=== PATIENT | male | born 1960 | race Caucasian/White ===

== ENCOUNTER 2020-02-03 05:36 | Outpatient (RCR) | payer BC ==
[~2020-02-03] VITALS: Ht 170 cm; Wt 79.5 kg
[2020-02-03] MEDS ORDERED: LISI10TA2 PO (13:04)
== END 2020-02-03 13:20 | disposition home or self-care (01) ==
LOC: PREOP 05:36
PROVIDERS: ATTEND Urology
DX: Z01.818 Encounter for other preprocedural examination (principal)

== ENCOUNTER → 2020-02-05 | Outpatient (CLI) | payer BC ==
[~2020-02-05] MED LIST: LISI10TA2 PO; PHEN-640 PO; SULF1TAB35 PO; TMSL.4C PO
== END ==
LOC: LAB FS 10:36
PROVIDERS: ATTEND Urology
DX: Z20.828 Contact with and (suspected) exposure to other viral communicable diseases (principal)
CPT/HCPCS: 87635

== ENCOUNTER 2020-02-10 07:03 | Day surgery (SDC) | payer BC ==
[2020-02-10] VITALS (11 sets, daily range): BP systolic 99–133; BP diastolic 67–88
[~2020-02-10] VITALS: Ht 170 cm; Wt 79.5 kg
[~2020-02-10 07:03] MED LIST changes: -PHEN-640 PO; -SULF1TAB35 PO; -TMSL.4C PO
--- NOTE | 2020-02-10 07:05 | Progress Note-Pre Operative ---
Pre-Operative Progress Note H&P Reviewed The H&P was reviewed, patient examined and no changes noted. Date Seen by Provider: Feb 10, 2020 Time Seen by Provider: 07:04 Date H&P Reviewed: Feb 10, 2020 Time H&P Reviewed: 07:04 Pre-Operative Diagnosis: BLADDER STONES AND BPH VICTORINO TAMAYO MD Feb 10, 2020 07:04
--- OUTSIDE RECORDS SUMMARY | 2020-02-10 07:08 | XMS REPORT | Continuity of Care Document ---
Author Organization Unknown Address Unknown Phone Unavailable Allergies Active Description Code Type Severity Reaction Onset Reported/Identified Relationship to Patient Clinical Status Yes No Known Drug Allergies [id number] Drug Allergy Unknown N/A 02/03/2020 Medications There is no data. Problems Date Dx Coded Attending Type Code Diagnosis Diagnosed By 08/01/1319 VICTORINO TAMAYO MD Ot Z01.8 18 ENCOUNTER FOR OTHER PREPROCEDURAL EXAMIN 02/03/2020 VICTORINO TAMAYO MD Ot Z01.8 18 ENCOUNTER FOR OTHER PREPROCEDURAL EXAMIN 02/09/2020 VICTORINO TAMAYO MD Ot Z20.8 28 CONTACT W AND EXPOSURE TO OTH VIRAL COMM Procedures There is no data. Results Test Result Range Coronavirus SARS-CoV-2 SO 2018 - 0 11:20 Coronavirus Ab [Units/volume] in Serum Negative Negative Encounters ACCT No. Visit Date/Time Discharge Status Pt. Type Provider Facility Loc./Unit Complaint [id number] 02/05/2020 10:36:00 020 23:59:59 CLS Outpatient VICTORINO TAMAYO MD [facility] LAB FS COVID SWAB [id number] 02/03/2020 05:36:00 020 13:20:00 DIS Outpatient VICTORINO TAMAYO MD [facility] PREOP BLADDER STONE [id number] 02/10/2020 09:15:00 P EN Preadmit VICTORINO TAMAYO MD [facility] SDC BLADDER STONE
--- NOTE | 2020-02-10 07:09 | Progress Note-Post Operative ---
Post-Operative Progess Note Surgeon (s)/Film Technician (s) Surgeon VICTORINO TAMAYO MD Film Technician: NONE Pre-Operative Diagnosis BLADDER STONES AND BPH Post-Operative Diagnosis SAME Procedure & Operative Findings Date of Procedure 02/10/20 Procedure Performed/Findings CYSTOLITHOTRIPSY Anesthesia Type GENERAL Estimated Blood Loss Estimated blood loss (mL): NEGLIGIBLE Specimens/Packing Specimens Removed BLADDER STONE FRAGMENTS Packing: NONE VICTORINO TAMAYO MD Feb 10, 2020 07:09
--- NOTE | 2020-02-10 07:10 | Discharge Inst-Urology ---
Discharge Inst-Urology Reconcile Patient Problems Problems Reviewed?: Yes Final Diagnosis BLADDER STONES AND BPH Patient Instructions/Follow Up Plan/Assessment/Instructions Please make appointment to been seen in office in 4 weeks. Please report urine status in 2hours to decide on cohn Increase oral fluids for 48 hours and then as needed. Diet and Activity as tolerated. If questions or concerns contact your physician Or seek help at emergency department. VICTORINO TAMAYO MD Feb 10, 2020 07:10
[2020-02-10] MEDS ORDERED: cefTRIAXone FOR IV USE 1,000 MG in WATER (STERILE) FOR INJECTION 10 ML IV ONE (07:15)
[2020-02-10] MEDS ORDERED: LACTATED RINGERS 1,000 ML IV PRN (07:15)
[2020-02-10] MEDS ORDERED: TMSL.4C PO (07:47)
[2020-02-10] MEDS ORDERED: ONDANSETRON 4 MG/2 ML (SDV) Z0FRAN ONE (09:24)
[2020-02-10] MEDS ORDERED: fentaNYL INJECTION 100 MCG/2 ML AMP ONE (09:24)
[2020-02-10] MEDS ORDERED: ROCURONIUM 10 MG/ML 5 ML SYRINGE IV ONE (09:24)
[2020-02-10] MEDS ORDERED: proPOfol 200 MG/20 ML (DIPRIVAN) VIAL IV ONE (09:24)
[2020-02-10] MEDS ORDERED: MIDAZOLAM 2 MG/2 ML (VERSED) VIAL ONE (09:25)
[2020-02-10] MEDS ORDERED: DEXAMETHASONE 10 MG/ML (DECADRON) 1 ML VIAL ONE (09:36)
[2020-02-10] MEDS ORDERED: LIDOCAINE PF 2% 5 ML (XYLOCAINE) VIAL ONE (09:36)
[2020-02-10] MEDS ORDERED: SEVOFLURANE (ULTANE) 15 ML INHAL SOLN ONE ×3 (09:36)
[2020-02-10] MEDS ORDERED: ONDANSETRON 4 MG/2 ML (SDV) Z0FRAN IVP PRN (10:30)
[2020-02-10] MEDS ORDERED: MEPERIDINE (DEMEROL) INJ 50 MG/ML IVP ONE (10:30)
[2020-02-10] MEDS ORDERED: PROMETHAZINE INJ 25 MG/ML (PHENERGAN) AMP IVP ONE (10:30)
[2020-02-10] MEDS ORDERED: morphine INJ 10 MG/ML 1ML (SYR OR VIAL) IVP ONE (10:30)
[2020-02-10] MEDS ORDERED: SULF1TAB35 PO (10:53)
[2020-02-10] MEDS ORDERED: PHEN-640 PO (10:53)
--- NOTE | 2020-02-10 11:18 | Anesthesia-General Post-Op ---
General Patient Condition Mental Status/LOC: Same as Preop Cardiovascular: Satisfactory Nausea/Vomiting: Absent Respiratory: Satisfactory Pain: Controlled Complications: Absent Post Op Complications Complications None Follow Up Care/Instructions Patient Instructions None needed. Anesthesia/Patient Condition Patient Condition Patient is doing well, no complaints, stable vital signs, no apparent adverse anesthesia problems. No complications reported per nursing. FLACO MA CRNA Feb 10, 2020 11:18
[2020-02-10] MEDS ORDERED: PHENAZOPYRIDINE 100 MG (PYRIDIUM) TABLET ONE (11:27)
[2020-02-10] MEDS ORDERED: PHENAZOPYRIDINE 100 MG (PYRIDIUM) TABLET PO ONE (11:45)
--- NOTE | 2020-02-10 12:20 | NUR ---
UPDATE CALLED TO DR. TAMAYO PATIENT'S ARCINIEGA WAS EMPTIED AND THERE WAS 200 CC OF BLOODY URINE NOTED. SCANT BLOOD CLOTS NOTED IN THE TUBING. PATIENT TAKING ORAL FLUIDS WELL. VSS. WILL KEEP ARCINIEGA IN UNTIL TOMORROW MORNING. PATIENT TO DRINK PLENTY OF FLUIDS. CALLED PATIENT'S DOCTOR, DR. WILSON, TO SET UP ARCINIEGA REMOVAL IN THE AM AT 0945. CALLED PATIENT'S PRESCRIPTIONS TO [facility] IN [place]. ALSO CALLED TRAMADOL IN FOR THE PATIENT.
--- NOTE | 2020-02-10 15:42 | OPERATIVE REPORT ---
DATE OF SERVICE: 02/10/2020 PREOPERATIVE DIAGNOSIS: Bladder stone and benign prostatic hypertrophy. POSTOPERATIVE DIAGNOSIS: Bladder stone and benign prostatic hypertrophy. OPERATION PERFORMED: Cystolithotripsy. SURGEON: Yaya Tamayo MD ANESTHESIA: General. COMPLICATIONS: None. DESCRIPTION OF PROCEDURE: Under satisfactory general anesthesia, the patient in lithotomy position, genitalia were prepped and draped in the usual sterile fashion. Cystoscope was introduced under vision. The anterior urethra was normal. The prostate was not significantly enlarged except for a high rising median bar. I think the bladder revealed trabeculations, cellules and the previously visualized stone at the office. Using the lithoclast, I completely fragmented the stones, evacuated all the fragments and could not see any further except very small tiny pieces easily to void. Because of the urine being kind of reddish, I elected to leave the catheter and then decide on the Echavarria catheter in couple of hours in the outpatient surgery department, so I inserted an 18-Namibian Echavarria catheter, inflated the balloon to 10 mL, connected to dependent drainage, the return of which was tinged. Estimated blood loss was less than 50 mL, none of which was replaced. The patient tolerated the procedure and anesthesia well and was sent to recovery room in stable condition. Job ID: [id number] DocumentID: [id number] Dictated Date: 02/10/2020 10:29:53 Chief Concierge Date: 02/10/2020 15:41:34 Dictated By: YAYA TAMAYO MD
== END 2020-02-10 13:40 | disposition home or self-care (01) ==
LOC: SDC 07:03
PROVIDERS: ATTEND Urology
DX: N21.0 Calculus in bladder (principal); N40.0 Benign prostatic hyperplasia without lower urinary tract symptoms; E11.9 Type 2 diabetes mellitus without complications; K21.9 Gastro-esophageal reflux disease without esophagitis; I10 Essential (primary) hypertension; Z79.899 Other long term (current) drug therapy
CPT/HCPCS: 87081

== ENCOUNTER 2022-02-08 05:40 | Outpatient (CLI) | payer BC ==
[~2022-02-08] VITALS: Ht 170.2 cm; Wt 81.8 kg
[~2022-02-08 05:40] MED LIST changes: -LISI10TA2 PO; +LISI10TA25 PO; +PHEN-640 PO; +SULF1TAB38 PO; +TMSL.4C PO
== END 2022-02-08 11:33 | disposition home or self-care (01) ==
LOC: PREOP 05:40
PROVIDERS: ATTEND Urology
DX: Z01.818 Encounter for other preprocedural examination (principal)

== ENCOUNTER 2022-02-14 06:15 | Day surgery (SDC) | payer BC ==
[2022-02-14] VITALS (10 sets, daily range): BP systolic 98–124; BP diastolic 72–87
[~2022-02-14] VITALS: Ht 170 cm; Wt 81.8 kg
[2022-02-14] MEDS ORDERED: cefTRIAXone 1 GM PRE-MIX 50 ML IV ONE (06:30)
--- NOTE | 2022-02-14 07:23 | Progress Note-Pre Operative ---
Pre-Operative Progress Note H&P Reviewed The H&P was reviewed, patient examined and no changes noted. Date Seen by Provider: Feb 14, 2022 Time Seen by Provider: 07:23 Date H&P Reviewed: Feb 14, 2022 Time H&P Reviewed: 07:23 Pre-Operative Diagnosis: BLADDER STONE VICTORINO TAMAYO MD Feb 14, 2022 07:23
--- NOTE | 2022-02-14 07:25 | Progress Note-Post Operative ---
Post-Operative Progess Note Surgeon (s)/Apartment Hotel Manager (s) Surgeon VICTORINO TAMAYO MD Apartment Hotel Manager: NONE Pre-Operative Diagnosis BLADDER STONES Post-Operative Diagnosis SAME Procedure & Operative Findings Date of Procedure 02/14/22 Procedure Performed/Findings CYSTOLITHOTRIPSY Anesthesia Type GENERAL Estimated Blood Loss Estimated blood loss (mL): LESS THAN 50CC Specimens/Packing Specimens Removed BLADDER STONE FRAGMENTS Packing: NONE VICTORINO TAMAYO MD Feb 14, 2022 07:25
--- NOTE | 2022-02-14 07:26 | Discharge Inst-Urology ---
Discharge Inst-Urology Reconcile Patient Problems Problems Reviewed?: Yes Final Diagnosis BLADDER STONE Patient Instructions/Follow Up Plan/Assessment/Instructions Run CBI then hold CBI and if urine fairly clear plug inlet and send patient home with cohn and leg bag day time and large bag night time with instructions Office tomorrow 9am to [facility]IM[facility] cohn Please make appointment to been seen by me in office in 2 weeks. Please send stone fragments to pathology post seen by patient, has them Increase oral fluids for 48 hours and then as needed. Diet and Activity as tolerated. If questions or concerns contact your physician Or seek help at emergency department. VICTORINO TAMAYO MD Feb 14, 2022 07:26
[2022-02-14] MEDS ORDERED: fentaNYL INJ 100 MCG/2 ML AMP ONE (07:33)
[2022-02-14] MEDS ORDERED: LIDOCAINE PF 2% 5 ML (XYLOCAINE) VIAL ONE (07:33)
[2022-02-14] MEDS ORDERED: proPOfol 200 MG/20 ML (DIPRIVAN) VIAL IV ONE (07:33)
[2022-02-14] MEDS ORDERED: MIDAZOLAM 2 MG/2 ML (VERSED) VIAL ONE (07:33)
[2022-02-14] MEDS: LACTATED RINGERS 1,000 ML IV PRN ×2 (07:36→08:15)
[2022-02-14] MEDS ORDERED: SEVOFLURANE (ULTANE) 15 ML INHAL SOLN ONE (08:59)
[2022-02-14] MEDS ORDERED: ONDANSETRON 4 MG/2 ML (SDV) Z0FRAN ONE (08:59)
--- NOTE | 2022-02-14 09:15 | Anesthesia-General Post-Op ---
General Patient Condition Mental Status/LOC: Same as Preop Cardiovascular: Satisfactory Nausea/Vomiting: Absent Respiratory: Satisfactory Pain: Controlled Complications: Absent Post Op Complications Complications None Follow Up Care/Instructions Patient Instructions None needed. Anesthesia/Patient Condition Patient Condition Patient is doing well, no complaints, stable vital signs, no apparent adverse anesthesia problems. No complications reported per nursing. MERON VILCHIS CRNA Feb 14, 2022 09:15
[2022-02-14] MEDS ORDERED: fentaNYL INJ 100 MCG/2 ML AMP IVP ONE (09:30)
[2022-02-14] MEDS ORDERED: ONDANSETRON 4 MG/2 ML (SDV) Z0FRAN IVP PRN (09:30)
[2022-02-14] MEDS ORDERED: PHENAZOPYRIDINE 100 MG (PYRIDIUM) TABLET PO ONE (10:45)
[2022-02-14] MEDS ORDERED: ACETAMINOPHEN 500 MG TAB (TYLENOL) ONE (10:50)
[2022-02-14] MEDS ORDERED: ACETAMINOPHEN 500 MG TAB (TYLENOL) PO ONE (11:00)
[2022-02-14] MEDS ORDERED: SULF1TAB38 PO (11:13)
[2022-02-14] MEDS ORDERED: PHEN-640 PO (11:13)
--- NOTE | 2022-02-14 13:32 | OPERATIVE REPORT ---
DATE OF SERVICE: 02/14/2022 PREOPERATIVE DIAGNOSIS: Bladder stones. POSTOPERATIVE DIAGNOSIS: Bladder stones. OPERATION PERFORMED: Cystolithotripsy. SURGEON: Yaya Tamayo MD ANESTHESIA: General. COMPLICATIONS: None. DESCRIPTION OF PROCEDURE: Under satisfactory general anesthesia, the patient in lithotomy position, genitalia were prepped and draped in the usual sterile fashion. Cystoscope was introduced under vision, again visualized the trilobar enlargement of the prostate, was a median lobe and median bar causing complete bladder neck obstruction. Bladder was inspected to reveal trabeculation and cellules and multiple bladder stones. Using the foroblique lens and lithoclast fiber, I completely fragmented all the stones and irrigated the fragments all of them out, cystoscopy confirmed that. The prostate being vascular I elected to put a 3-way catheter 20-Syriac 10 mL balloon, I connected to continuous bladder irrigation, the return of which was pretty clear. Estimated blood loss was less than 50 mL, none of which was replaced. The patient tolerated the procedure and anesthesia well and was sent to recovery room in stable condition. PLAN: We will see how he does off the CBI once he wakes up, send him home with the catheter, see him back in the office tomorrow morning and remove it. Plan was fully explained to the . Job ID: [id number] DocumentID: [id number] Dictated Date: 02/14/2022 09:13:48 Animal Care Provider Date: 02/14/2022 13:32:23 Dictated By: YAYA TAMAYO MD
== END 2022-02-14 12:40 | disposition home or self-care (01) ==
LOC: SDC 06:15
PROVIDERS: ATTEND Urology
DX: N21.0 Calculus in bladder (principal)
CPT/HCPCS: 87081

== ENCOUNTER 2022-04-19 05:30 | Outpatient (CLI) | payer BC ==
[~2022-04-19] VITALS: Ht 170.2 cm; Wt 81.8 kg
== END 2022-04-23 11:49 | disposition home or self-care (01) ==
LOC: PREOP 05:30
PROVIDERS: ATTEND Urology
DX: Z01.818 Encounter for other preprocedural examination (principal); N21.0 Calculus in bladder

== ENCOUNTER 2022-04-26 06:36 | Day surgery (SDC) | payer BC ==
[~2022-04-26] VITALS: Ht 170.2 cm; Wt 82.6 kg
[2022-04-26] VITALS (10 sets, daily range): BP systolic 100–129; BP diastolic 62–82
[2022-04-26] MEDS ORDERED: LACTATED RINGERS 1,000 ML IV PRN (06:45)
[2022-04-26] MEDS ORDERED: MIDAZOLAM 2 MG/2 ML (VERSED) VIAL ONE (06:58)
[2022-04-26] MEDS ORDERED: SEVOFLURANE (ULTANE) 15 ML INHAL SOLN ONE ×2 (06:58→08:57)
[2022-04-26] MEDS ORDERED: ONDANSETRON 4 MG/2 ML (SDV) Z0FRAN ONE (06:58)
[2022-04-26] MEDS ORDERED: LIDOCAINE PF 2% 5 ML (XYLOCAINE) VIAL ONE (06:58)
[2022-04-26] MEDS ORDERED: proPOfol 200 MG/20 ML (DIPRIVAN) VIAL IV ONE ×2 (06:58→09:01)
[2022-04-26] MEDS ORDERED: fentaNYL INJ 100 MCG/2 ML AMP ONE (06:58)
[2022-04-26] MEDS ORDERED: cefTRIAXone 1 GM PRE-MIX 50 ML IV ONE (07:00)
--- NOTE | 2022-04-26 07:17 | Progress Note-Post Operative ---
Post-Operative Progess Note Surgeon (s)/Svp Of Digital (s) Surgeon VICTORINO TAMAYO MD Svp Of Digital: NONE Pre-Operative Diagnosis BPH WITH PROSTATISM AND BLADDER STONES Post-Operative Diagnosis SAME NO STONES Procedure & Operative Findings Date of Procedure 04/26/22 Procedure Performed/Findings TURP Anesthesia Type GENERAL Estimated Blood Loss Estimated blood loss (mL): 150cc Specimens/Packing Specimens Removed PROSTATE CHIPS Packing: NONE VICTORINO TAMAYO MD Apr 26, 2022 07:17
--- NOTE | 2022-04-26 07:17 | Progress Note-Pre Operative ---
Pre-Operative Progress Note Date of Available H&P: Apr 26, 2022 Date H&P Reviewed: Apr 26, 2022 Time H&P Reviewed: 07:16 Changes from last HP NONE Pre-Operative Diagnosis: BPH WITH PROSTATISM AND BLADDER STONES VICTORINO TAMAYO MD Apr 26, 2022 07:17
[2022-04-26] MEDS ORDERED: PHENYLEPHRINE 100 MCG/ML 10 ML (ANESTHESIA) SYR ONE (07:48)
[2022-04-26] MEDS ORDERED: ROCURONIUM 50 MG/5 ML (ZEMURON) VIAL IV ONE (07:52)
[2022-04-26] MEDS ORDERED: NEOSTIGMINE (BLOXIVERZ ) 1 MG/1ML 10 ML VIAL ONE (08:56)
[2022-04-26] MEDS ORDERED: GLYCOPYRROLATE 0.2 MG/ML (ROBINUL) 2 ML VIAL ONE (08:56)
[2022-04-26] MEDS ORDERED: BELLADONNA ALK/OPIUM (B & O) 30 MG SUPP PR PRN (09:30)
[2022-04-26] MEDS ORDERED: ONDANSETRON 4 MG/2 ML (SDV) Z0FRAN IVP PRN (09:30)
[2022-04-26] MEDS ORDERED: MILK OF MAGNESIA 400 MG/5 ML 30 ML UDC PO PRN (09:30)
[2022-04-26] MEDS ORDERED: HYDROmorphone 2 MG/ML VIAL (DILAUDID) IV ONE (09:30)
[2022-04-26] MEDS: LACTATED RINGERS 1,000 ML IV SCH ×3 (11:24→18:02)
[2022-04-26] MEDS ORDERED: oxyCODONE/APAP 5/325MG (PERCOCET 5) TABLET PO PRN (13:45)
--- NOTE | 2022-04-26 13:48 | OPERATIVE REPORT ---
DATE OF SERVICE: 04/26/2022 PREOPERATIVE DIAGNOSES: BPH with prostatism and history of bladder stones. POSTOPERATIVE DIAGNOSES: BPH with prostatism and history of bladder stones, no stones. OPERATION PERFORMED: Transurethral resection of the prostate. SURGEON: Victorino Tamayo MD ANESTHESIA: General. COMPLICATIONS: None. DESCRIPTION OF PROCEDURE: Under satisfactory general anesthesia at the request of the patient, the patient in lithotomy position, genitalia were prepped and draped in the usual sterile fashion. Urethra was dilated with Amos sound to accommodate a 27-Honduran COSMIC COLOR resectoscope easily. Again, visualized a prominent median lobe as well as the enlarged lateral lobe. I went ahead and leveled the median lobe completely then resected the lobes first at the roof then the sides and finally the apical tissue. The prostate was quite vascular and big, but I was able to provide the patient with a very good channel and cauterized all the bleeders. Prostatic chips were evacuated. Cystoscopy confirmed intact ureteric orifices, veru and sphincter with good reflex. A 22-Honduran 3-way 30 mL balloon catheter was inserted. The balloon inflated to 50 mL, put on some traction and connected to CBI, the return of which was clear. Estimated blood loss was 150 mL, none of which was replaced. The patient tolerated the procedure and anesthesia well and was sent to recovery room in stable condition. Job ID: [id number] DocumentID: [id number] Dictated Date: 04/26/2022 09:25:50 Campus Wellness Coordinator Date: 04/26/2022 13:46:56 Dictated By: VICTORINO TAMAYO MD
[2022-04-26] MEDS: PHENAZOPYRIDINE 100 MG (PYRIDIUM) TABLET PO SCH ×2 (14:14→18:01)
[2022-04-26] MEDS: DOCUSATE SODIUM 100 MG (COLACE) CAP PO SCH (19:42)
[2022-04-27 00:01] VITALS: BP 104/62
[2022-04-27 04:26] VITALS: BP 102/63
[2022-04-27 08:19] VITALS: BP 120/74
--- NOTE | 2022-04-27 09:48 | Progress Note - Urology ---
Progress Note-Urology Progress Notes/Assess & Plan Progress/Assessment & Plan DOING AND FEELING WELL. URINE CLEAR. PLAN PER ORDERS Final Diagnosis BPH VICTORINO TAMAYO MD Apr 27, 2022 09:48
[2022-04-27] MEDS: DOCUSATE SODIUM 100 MG (COLACE) CAP PO SCH (09:57)
[2022-04-27] MEDS: PHENAZOPYRIDINE 100 MG (PYRIDIUM) TABLET PO SCH ×2 (09:57→14:41)
[2022-04-27] MEDS: LACTATED RINGERS 1,000 ML IV SCH (09:57)
--- NOTE | 2022-04-27 09:58 | Anesthesia-General Post-Op ---
General Patient Condition Mental Status/LOC: Same as Preop Cardiovascular: Satisfactory Nausea/Vomiting: Absent Respiratory: Satisfactory Pain: Controlled Complications: Absent Post Op Complications Complications None Follow Up Care/Instructions Patient Instructions None needed. Anesthesia/Patient Condition Patient Condition Patient is doing well, no complaints, stable vital signs, no apparent adverse anesthesia problems. No complications reported per nursing. ELEONORA VILLEGAS CRNA Apr 27, 2022 09:58
[2022-04-27 11:11] VITALS: BP 122/78
[2022-04-27 16:19] VITALS: BP 118/77
[2022-04-27] MEDS ORDERED: CIPR-225 PO (16:41)
== END 2022-04-27 17:03 | disposition home or self-care (01) ==
LOC: SDC 06:36 → 4TH 10:24 → SDC 04-27 17:03
PROVIDERS: ATTEND Urology
DX: N40.0 Benign prostatic hyperplasia without lower urinary tract symptoms (principal); K21.9 Gastro-esophageal reflux disease without esophagitis
CPT/HCPCS: 86850; 86900; 86901; 87081; 94664

== ENCOUNTER → 2022-08-17 | Outpatient (CLI) | payer BC ==
[~2022-08-17] MED LIST changes: +CIPR-225 PO
[2022-08-17 12:08] LABS: ALBUMIN 3.9 GM/DL (3.2-4.5); BILIRUBIN,TOTAL 0.6 MG/DL (0.1-1.0); CALCIUM 9.1 MG/DL (8.5-10.1); CREATININE SERUM 1.17 MG/DL (0.60-1.30); POTASSIUM 4.3 MMOL/L (3.6-5.0); TOTAL PROTEIN 6.3 GM/DL (6.4-8.2)
[2022-08-17 12:10] LABS: BASOPHILS % (AUTO) 1 % (0-10); EOSINOPHILS # (AUTO) 0.1 10^3/uL (0.0-0.3); EOSINOPHILS % (AUTO) 2 % (0-10); HEMATOCRIT 43 % (40-54); HEMOGLOBIN 14.9 g/dL (13.3-17.7); LYMPHOCYTES # (AUTO) 1.5 10^3/uL (1.0-4.0); LYMPHOCYTES % (AUTO) 26 % (12-44); MEAN CORPUSCULAR HEMOGLOBIN 31 pg (25-34); MEAN CORPUSCULAR HGB CONC 35 g/dL (32-36); MEAN CORPUSCULAR VOLUME 89 fL (80-99); MEAN PLATELET VOLUME 9.1 fL (9.0-12.2); MONOCYTES # (AUTO) 0.4 10^3/uL (0.0-1.0); MONOCYTES % (AUTO) 7 % (0-12); NEUTROPHILS # (AUTO) 3.6 10^3/uL (1.8-7.8); NEUTROPHILS % (AUTO) 64 % (42-75); PLATELET COUNT 233 10^3/uL (130-400); WHITE BLOOD COUNT 5.6 10^3/uL (4.3-11.0)
== END ==
LOC: WOUNDCARE 09:39
PROVIDERS: ATTEND Family Medicine
DX: T81.31XA Disruption of external operation (surgical) wound, not elsewhere classified, initial encounter (principal); W54.0XXA Bitten by dog, initial encounter; E11.9 Type 2 diabetes mellitus without complications; L76.22 Postprocedural hemorrhage of skin and subcutaneous tissue following other procedure
CPT/HCPCS: 11042; 36415; 80053; 83036; 85025; 87070; 87205

== ENCOUNTER → 2022-08-22 | Outpatient (CLI) | payer BC | LOC: WOUNDCARE 07:54 | PROVIDERS: ATTEND Family Medicine | DX: T81.31XA Disruption of external operation (surgical) wound, not elsewhere classified, initial encounter (principal); I96 Gangrene, not elsewhere classified; L76.32 Postprocedural hematoma of skin and subcutaneous tissue following other procedure; E11.9 Type 2 diabetes mellitus without complications; W54.0XXA Bitten by dog, initial encounter | CPT/HCPCS: 11042 ==

== ENCOUNTER → 2022-08-28 | Outpatient (CLI) | payer BC | LOC: WOUNDCARE 08:11 | PROVIDERS: ATTEND Family Medicine | DX: I96 Gangrene, not elsewhere classified (principal); T81.31XA Disruption of external operation (surgical) wound, not elsewhere classified, initial encounter; L76.22 Postprocedural hemorrhage of skin and subcutaneous tissue following other procedure; W54.0XXA Bitten by dog, initial encounter; E11.9 Type 2 diabetes mellitus without complications | CPT/HCPCS: 11042 ==

== ENCOUNTER → 2022-09-05 | Outpatient (CLI) | payer BC | LOC: WOUNDCARE 09:53 | PROVIDERS: ATTEND Family Medicine | DX: T81.31XA Disruption of external operation (surgical) wound, not elsewhere classified, initial encounter (principal); W54.0XXA Bitten by dog, initial encounter; E11.9 Type 2 diabetes mellitus without complications; L76.22 Postprocedural hemorrhage of skin and subcutaneous tissue following other procedure; I96 Gangrene, not elsewhere classified | CPT/HCPCS: 11042 ==

== ENCOUNTER → 2022-09-17 | Outpatient (CLI) | payer BC | LOC: WOUNDCARE 09:53 | PROVIDERS: ATTEND Family Medicine | DX: W54.0XXA Bitten by dog, initial encounter (principal); E11.9 Type 2 diabetes mellitus without complications; T81.31XA Disruption of external operation (surgical) wound, not elsewhere classified, initial encounter; L76.22 Postprocedural hemorrhage of skin and subcutaneous tissue following other procedure; E11.52 Type 2 diabetes mellitus with diabetic peripheral angiopathy with gangrene | CPT/HCPCS: 11042 ==